=== PATIENT | female | born 1955 | race Caucasian/White ===

== ENCOUNTER 2018-09-24 05:38 | Day surgery (SDC) | payer OTHER ==
--- NOTE | 2018-08-22 06:31 | HP ---
HISTORY AND PHYSICAL: DATE OF SURGERY/ADMISSION: 09/10/18 DATE OF OFFICE VISIT: 08/21/18 SURGEON: Aylin Anders MD * (DICTATED BY ANGELIA REDDY) PROCEDURE: Right knee arthroscopy with partial meniscectomy, possible chondroplasty, possible synovectomy and possible plica excision. CHIEF COMPLAINT: Right knee pain. HISTORY OF PRESENT ILLNESS: Ms. Lynch is a 63-year-old female with complaints of right knee pain. She has elected to proceed with the right knee arthroscopy. PAST MEDICAL HISTORY: Hypertension, high cholesterol and basal cell carcinoma. PAST SURGICAL HISTORY: Breast reduction, hysterectomy, laparoscopy, tubal ligation and tonsillectomy. CURRENT MEDICATIONS: 1. Mobic. 2. Aspirin 81 mg a day. 3. Enalapril/hydrochlorothiazide 5/12.5 mg a day. ALLERGIES: No known drug allergies. FAMILY HISTORY: Coronary artery disease and cancer. SOCIAL HISTORY: She is a 63-year-old female. She lives with her . She does not smoke or use drugs. Uses occasional alcohol. REVIEW OF SYSTEMS: A complete 14-point review of systems was reviewed with the patient, was all negative or noncontributory. PHYSICAL EXAMINATION GENERAL: She is well developed, well nourished, in no acute distress. VITAL SIGNS: She stands 63 inches tall, weighs 180 pounds. Her blood pressure is 120/76 and heart rate is 80. HEENT: Normocephalic, atraumatic. NECK: Supple. No palpable lymph nodes. PULMONARY: The lungs are clear to auscultation bilaterally. CARDIO: Regular rate and rhythm. Strong S1 and S2. ABDOMEN: Soft, nontender and nondistended. NEUROLOGICAL: She is alert and oriented x3. MUSCULOSKELETAL: Right lower extremity: Skin is intact. There are no open wounds or abrasions. She walks with an antalgic-type gait favoring her right knee. There is a gzvc-ou-auvykolm effusion. She has some tenderness over the medial joint line. Positive Cody's, positive Apley's. Negative Ash's. Her calf is soft and nontender. She has 2+ dorsalis pedis pulse. She is able to dorsiflex and plantar flex and has intact sensation. ASSESSMENT AND PLAN: Ms. Lynch is a 63-year-old female with complaints of right knee pain and MRI confirms the meniscus tear. She is elected to proceed with the right knee arthroscopy with partial meniscectomy, possible chondroplasty, possible synovectomy and possible plica excision. Surgery is scheduled for 09/10/[address] Anders discussed the risks and benefits of the surgery at today's visit and all of her questions were answered. She will follow up with Dr. Anders 2 weeks after the surgery. ANGELIA REDDY [id number]/[facility] #: [id number] MTDEmma
[~2018-09-24 05:38] MED LIST: Buffered Lidocaine 1% SYRIN* 1 ML/SYRINGE INTRADERM ONE
[2018-09-24] MEDS ORDERED: Lactated Ringers 1000 ML Bag* 1,000 ML IV SCH (06:00)
[2018-09-24] MEDS ORDERED: Famotidine IV* 10 MG/ML 2 ML (20 mg) IV ONE (06:00)
[2018-09-24] MEDS ORDERED: Buffered Lidocaine 1% SYRIN* 1 ML/SYRINGE INTRADERM ONE (06:14)
[2018-09-24] MEDS ORDERED: ceFAZolin 2 GM PREMIX in ORs 2 GM/50 ML BAG IVPB ONE (06:14)
[2018-09-24] MEDS ORDERED: Famotidine IV* 10 MG/ML 2 ML (20 mg) ONE (06:15)
[2018-09-24] MEDS ORDERED: methylPREDNISolone ACETATE 80* 80 MG/ML 1 ML VIAL ONE (06:49)
[2018-09-24] MEDS ORDERED: ROPIVACAINE 5 MG/ML 30 ML BTL (0.5%) ONE (06:49)
[2018-09-24] MEDS ORDERED: EPINEPHRINE 1 MG/ML 1 ML VIAL ONE (06:49)
[2018-09-24] MEDS ORDERED: Midazolam* 1 MG/ML 5 ML VIAL (5 MG) ONE (07:30)
[2018-09-24] MEDS ORDERED: fentaNYL* 50 MCG/ML 2 ML VIAL (100 MCG VIAL) ONE (07:30)
[2018-09-24] MEDS ORDERED: Ondansetron INJ* 2 MG/ML VIAL ONE (07:55)
[2018-09-24] MEDS ORDERED: DiMENhydriNATE IV* 50 MG/ML VIAL ONE (07:55)
[2018-09-24] MEDS ORDERED: Lidocaine 2% PF * 5 ML VIAL ONE (07:55)
[2018-09-24] MEDS ORDERED: Dexamethasone IV* 4 MG/ML 1 ML (4 MG) ONE (07:55)
[2018-09-24] MEDS ORDERED: Ketorolac INJ* 30 MG/ML 1 ML VIAL ONE (07:55)
[2018-09-24] MEDS ORDERED: Propofol* 10 MG/ML 20 ML BTL ONE (07:55)
[2018-09-24] MEDS ORDERED: Naloxone* 0.4 MG/ML 1 ML VIAL IV PRN (08:35)
[2018-09-24] MEDS ORDERED: Acetaminophen TAB* 325 MG PO PRN (08:35)
[2018-09-24] MEDS ORDERED: DiMENhydriNATE IV* 50 MG/ML VIAL IV PUSH PRN (08:35)
[2018-09-24] MEDS ORDERED: HYDROmorphone INJ1* 1 MG/ML SYRINGE IV PRN (08:35)
[2018-09-24] MEDS ORDERED: oxyCODONE TAB* 5 MG TAB ONE ×2 (08:49→09:41)
[2018-09-24] MEDS: oxyCODONE TAB* 5 MG TAB PO PRN ×2 (08:51→09:47)
[2018-09-24] MEDS ORDERED: Acetaminophen TAB* 325 MG ONE (09:03)
[2018-09-24 09:51] VITALS: BP 134/87
--- NOTE | 2018-09-25 00:24 | OP ---
DATE OF OPERATION: 09/24/18 [facility] DATE OF : 57 ATTENDING SURGEON: Aylin Anders MD. CORPORATE DEVELOPMENT ASSOCIATE: ANGELIA Naqvi. Mr. Tiwari did help throughout the procedure with preparation of the leg, wound retraction, manipulation of the knee, and wound closure. ANESTHESIOLOGIST: Dr. Doan. ANESTHESIA: General. PRE-OP DIAGNOSES: Right knee lateral meniscus tear, moderate degenerative osteoarthritis. POST-OP DIAGNOSES: Right knee lateral meniscus tear, anterior synovitis, severe arthritis. OPERATIVE PROCEDURE: Right knee arthroscopy with partial lateral meniscectomy, anterior synovectomy. COMPLICATIONS: None. ESTIMATED BLOOD LOSS: Less than 25 cc. SPECIMEN: None. BRIEF HISTORY/INDICATIONS: Ms. Lynch is a 63-year-old female who injured her right knee when shoveling snow in April 2018. She had a twisting injury at that time and developed mechanical symptoms along the lateral joint line with recurrent effusions. She failed conservative treatment and MRI confirmed a lateral meniscus tear. We discussed different options and she wished to proceed with arthroscopy. She felt that the mechanical symptoms were causing her the most pain and she understood she had baseline arthritis. Informed consent was obtained from the patient. She understood the risks of surgery included; but were not limited to; bleeding, infection, damage to nearby structures, continued pain, need for further surgery, re-tear of the meniscus, progression of arthritis, stroke, heart attack, blood clot, , and anesthesia complications. She wished to proceed. INTRAOPERATIVE FINDINGS: Intraoperatively, the patient was noted to have a parrot beak type tear along the anterior and midportion of the lateral meniscus. This was displaced into the joint space. She was noted to have a large amount of anterior synovitis and inflamed tissue. She had visible exposed subchondral bone in all 3 compartments. These were grade 3 and 4 Outerbridge cartilage changes. DESCRIPTION OF PROCEDURE: Ms. Lynch was identified in the preanesthesia unit. Her right lower extremity was marked as the correct operative site. Informed consent was signed and placed in the chart. The patient was taken to the operating room and placed under anesthesia without difficulty. Right lower extremity was prepped and draped in the usual sterile fashion. Preop time-out was made to correctly identify the patient, side, and site. Appropriate perioperative antibiotics were given within 1 hour of incision. A 0.5 cm anterolateral portal incision was made along the joint line and it was carried down to the capsule. Trocar was introduced. As soon as the light and water sources were turned on, there was immediate visualization of the suprapatellar pouch. A tour of the knee joint was performed. Suprapatellar pouch had no obvious abnormalities. Patellofemoral compartment had grade 3 and 4 Outerbridge cartilage changes with exposed subchondral bone along the medial and lateral patellar facets. Medial gutter had no obvious plica or loose body. Medial compartment showed no obvious meniscal tear. There was some exposed subchondral bone along the medial femoral condyle with grade 3 and 4 Outerbridge cartilage changes. ACL and PCL appeared to be intact. There was a large amount of anterior inflamed soft tissue or synovitis. The knee was placed in a lgzevd-iq-jcdv position. The lateral compartment showed an obvious meniscal tear along the anterior and midportion of the lateral meniscus with displacement into the joint space. There was exposed subchondral bone along the lateral femoral condyle and lateral tibial plateau. These were grade 3 and 4 Outer-bridge cartilage changes. Lateral gutters showed no loose body or significant plica. Under direct visualization, a medial portal incision was made with a 10 blade. Probe was introduced and a second tour of the knee joint was performed. There were no additional findings noted. Shaver and radiofrequency ablation wand were used to perform anterior synovectomy. Inflamed synovium was conservatively excised. This improved visualization of the joint considerably. The knee was placed in a figure- of-four position. Shaver and straight biter were used to perform partial lateral meniscectomy. Radiofrequency ablation wand was used to further smooth the clean edge of the lateral meniscus. Further probing of the lateral meniscus showed no additional tears. This lateral partial meniscectomy was performed largely in the white-red zone. The knee was copiously irrigated with sterile saline. All instruments were carefully removed. Incisions were closed using 3-0 nylon sutures and an intraarticular injection of 80 mg Depo-Medrol and 6 cc of 0.25% Marcaine was placed in the knee joint. Incisions were covered with sterile Xeroform, 4x4s, and Webril. Henry wrap and cold pack were placed over this. The patient's anesthesia was reversed without difficulty. She was taken to the PACU in stable condition. Intended weightbearing will be weightbearing as tolerated. Intended DVT prophylaxis will be aspirin. [id number]/[facility] #: [id number] MTDD
== END 2018-09-24 09:52 | disposition home or self-care (01) ==
LOC: OR 05:38
PROVIDERS: ATTEND Orthopaedic Surgery Adult Reconstructive Orthopaedic Surgery
DX: S83.281A Other tear of lateral meniscus, current injury, right knee, initial encounter (principal); X58.XXXA Exposure to other specified factors, initial encounter; Y92.9 Unspecified place or not applicable; I10 Essential (primary) hypertension; E78.5 Hyperlipidemia, unspecified; Z85.828 Personal history of other malignant neoplasm of skin; K21.9 Gastro-esophageal reflux disease without esophagitis; M19.90 Unspecified osteoarthritis, unspecified site
CPT/HCPCS: A9270-GY; J0690; J1040; J1100; J1240; J1885; J2250; J2405; J2704; J2795; J3010

== ENCOUNTER 2019-03-13 07:13 | Inpatient (IN) | payer OTHER ==
--- NOTE | 2019-03-05 16:36 | HP ---
HISTORY AND PHYSICAL: DATE OF ADMISSION/SURGERY: 03/13/19 DATE OF OFFICE VISIT: 02/28/19 SURGEON: Aylin Anders MD * (DICTATED BY ANGELIA REDDY) PROCEDURE: Right total knee arthroplasty. CHIEF COMPLAINT: Right knee pain. HISTORY OF PRESENT ILLNESS: Ms. Lynch is a 64-year-old female with end- stage osteoarthritis of the right knee. She has failed conservative treatment and elected to proceed with the right total knee arthroplasty. PAST MEDICAL HISTORY: Hypertension, high cholesterol, basal cell carcinoma. PAST SURGICAL HISTORY: Tonsillectomy, tubal ligation, D and C, hysterectomy, laparoscopic oophorectomy, breast reduction, tooth implant and right knee scope. CURRENT MEDICATIONS: 1. Vitamin D3. 2. Enalapril. 3. Aspirin 81 mg. 4. Centrum Silver. 5. Fish Oil. ALLERGIES: No known drug allergies FAMILY HISTORY: Coronary artery disease, breast cancer and melanoma. SOCIAL HISTORY: She is a 54-year-old, lives with her , does not smoke or use drugs. She has occasional alcohol. REVIEW OF SYSTEMS: A complete 14-point review of systems reviewed with the patient and was all negative or noncontributory. PHYSICAL EXAMINATION GENERAL: She is well developed, well nourished in no acute distress. VITAL SIGNS: She stands 62 inches tall, weighs 190 pounds, blood pressure is 132/90, heart rate is 80. HEENT: Normocephalic, atraumatic. NECK: Supple. No palpable lymph nodes. PULMONARY: Lungs are clear to auscultation bilaterally. CARDIO: Regular rate and rhythm. Strong S1 and S2. ABDOMEN: Soft, nontender, nondistended. NEUROLOGIC: She is alert and oriented x3. MUSCULOSKELETAL: Right lower extremity, skin is intact. There are no open wounds or abrasions. There is a moderate effusion of the right knee joint and tenderness over the medial and lateral joint line. Range of motion is 5 to 125 degrees of flexion with patellofemoral crepitus. She has a 2+ dorsalis pedis pulse. She is able to dorsiflex and plantarflex and has intact sensation. ASSESSMENT AND PLAN: Ms. Lynch is a 64-year-old female with end-stage osteoarthritis of the right knee. She has failed conservative treatment and elected to proceed with a right total knee arthroplasty. The surgery is scheduled for 03/13/[address] Anders discussed the risks and benefits of the surgery at today's visit and all of her questions were answered. She will follow up with Dr. Anders in 2 weeks after the surgery. ANGELIA REDDY [id number]/[facility] #: [id number] NINA
[~2019-03-13 07:13] MED LIST changes: +Lactated Ringers 1000 ML Bag* 1,000 ML IV SCH; +Tranexamic Acid 1,000 MG in NS 0.9% 50 ML* (outpatient use) IV SCH
--- OUTSIDE RECORDS SUMMARY | 2019-03-13 07:17 | XMS REPORT | Continuity of Care Document ---
:1955 External Reference #:[id number] Author Name Wilda Goncalevs M.D. Address [address] [place] [address] Care Team Providers Name Role Phone Wilda Goncalves - Family Medicine Care Team Information Director Of Housing [phone] Problems Description No Information Available Social History Type Date Description Comments Sex Unknown Tobacco Use Start: Unknown End: Former Cigarette Smoker 1 x 10-15 years. Unknown Pack Daily Stopped around 1989. Tobacco Use Start: Unknown End: Patient is a former smoker Unknown Smoking Status Reviewed: 02/18/19 Patient is a former smoker Allergies, Adverse Reactions, Alerts Description No Known Drug Allergies Medications Active Medications SIG Qnty Indications Ordering Provider Date Enalapril take 1 tablet 90tabs I10 ZAIRE Benavidez 06/27/2013 Maleate/Hydrochloroth by mouth every iazide day 5-12.5mg Tablets Asa PO qd Family Medicine 02/22/2006 [facility] Fish Oil 1 PO qd E78.4 Family Medicine 02/22/2006 1000mg [facility] Multi Vit 1 PO qd Unknown Tablets Vitamin D 1 po qd Family [facility] [place] Immunizations CPT Code Status Date Vaccine Lot # [id number] Given 02/18/2019 Influenza Virus Vaccine, Recombinant Dna, [id number] [place] [address] Given 03/28/2018 Influenza Vac, Quadrivalent, Slit Virus, Im [id number] 40550 Given 04/03/2017 Influenza vac quadrivalent preservative free 6 [id number] months and up [address] Given 12/12/2010 Hep A Adlt Immunization [id number] 74847 Given 06/15/2010 Hep A Adlt Immunization [id number] Vital Signs Date Vital Result Comment 02/18/2019 1:01pm BP Systolic 150 mmHg BP Diastolic 88 mmHg Heart Rate 72 /min Body Temperature 98.1 F Respiratory Rate 16 /min Height 62 inches 5'2" Weight 192.00 lb BMI (Body Mass Index) 35.1 kg/m2 08/29/2018 3:06pm BP Systolic 144 mmHg BP Diastolic 80 mmHg Heart Rate 78 /min Body Temperature 97.7 F Height 62 inches 5'2" Weight 182.00 lb BMI (Body Mass Index) 33.3 kg/m2 Results Test Date Facility Test Result H/L Range Note Inr/Protime 08/30/2018 [facility] [place] 0.86 Normal 0.77-1.02 CBC No Diff 08/30/2018 [facility] [place] White Blood Count 7.8 10^3/uL Normal 3.5-10.8 Red Blood Count 4.25 10^6/uL Normal 3.70-4.87 Hemoglobin 13.6 g/dL Normal 12.0-16.0 Hematocrit 40 % Normal 33-41 Mean Corpuscular Volume 95 fL Normal 80-97 Mean Corpuscular Hemoglobin 32 pg High 27-31 Mean Corpuscular HGB Conc 34 g/dL Normal 31-36 Red Cell Distribution Width 13 % Normal 10.5-15 Platelet Count 268 10^3/uL Normal 150-450 Mean Platelet Volume 8.0 fL Normal 7.4-10.4 Comp Metabolic Panel 08/30/2018 [facility] [place] Sodium 138 mmol/L Normal 135-145 Potassium 4.1 mmol/L Normal 3.5-5.0 Chloride 101 mmol/L Normal 101-111 Co2 Carbon Dioxide 30 mmol/L Normal 22-32 Anion Gap 7 mmol/L Normal 2-11 Glucose 73 mg/dL Normal 70-100 Blood Urea Nitrogen 20 mg/dL Normal 6-24 Creatinine 0.76 mg/dL Normal 0.51-0.95 BUN/Creatinine Ratio 26.3 High 8-20 Calcium 9.8 mg/dL Normal 8.6-10.3 Total Protein 7.0 g/dL Normal 6.4-8.9 Albumin 4.6 g/dL Normal 3.2-5.2 Globulin 2.4 g/dL Normal 2-4 Albumin/Globulin Ratio 1.9 Normal 1-3 Total Bilirubin 0.70 mg/dL Normal 0.2-1.0 Alkaline Phosphatase 65 U/L Normal 34-104 Alt 25 U/L Normal 7-52 Ast 19 U/L Normal 13-39 Egfr Non- 77.1 >60 Egfr 93.3 >60 1 Urinalysis Profile 08/30/2018 [facility] [place]rine Color Straw Urine Appearance Clear Urine Specific [place] 1.011 Normal 1.010-1.030 Urine pH 7.0 Normal 5-9 Urine Urobilinogen Negative Negative Urine Ketones Negative Negative Urine Protein Negative Negative Urine Leukocytes Negative Negative Urine Blood Negative Negative Urine Nitrite Negative Negative Urine Bilirubin Negative Negative Urine Glucose Negative Negative Urine Culture And Sensitivities 08/30/2018 [facility] [place] Urine Culture SEE RESULT BELOW 2 1 Because ethnic data is not always readily available, this report includes an eGFR for both -Americans and non- Americans. The National Kidney Disease Education Program (NKDEP) does not endorse the use of the MDRD equation for patients that are not between the ages of 18 and 70, are , have extremes of body size, muscle mass, or nutritional status, or are non- or non-. According to the National Kidney Foundation, irrespective of diagnosis, the stage of the disease is based on the level of kidney function: Stage Description GFR(mL/min/1.73 m(2)) 1 Kidney damage with normal or decreased GFR 90 2 Kidney damage with mild decrease in GFR 60-89 3 Moderate decrease in GFR 30-59 4 Severe decrease in GFR 15-29 5 Kidney failure <15 (or dialysis) 2 SEE RESULT BELOW Name: CYNDIE LYNCH : [address]: Wilda Goncalves MD Acct: [id number] Unit: [id number] AGE: 63 Location: [facility] Re08/30/18 SEX: F Status: REG REF SPEC: [id number] MORENITA: 08/30/[address]: Wilda Goncalves MD REQ: [id number] RECD: 08/30/18 STATUS: EPHRAIM BROWN DR: Aylin Anders MD _ SOURCE: URINE SPDESC: ORDERED: Urine Culture Urine Source: Clean Catch Procedure Result Reported Site Urine Culture Final 09/01/18 9261 ML No growth of clinically significant organisms * ML - Main Lab . END OF REPORT DEPARTMENT OF PATHOLOGY, [address] [place] [id number] Jacob Grant M.D. Director [facility] # [id number] Procedures Date Code Description Status 08/29/2018 25746 Electrocardiogram Complete Completed 03/28/2018 [id number] Mammogram Completed 09/05/2017 [id number] Colonoscopy Completed 03/22/2017 [id number] Mammogram Completed 02/18/2016 [id number] Mammogram Completed 01/07/2015 [id number] Mammogram Completed 10/04/2010 [id number] Mammogram Completed 09/09/2009 [id number] Mammogram Completed 12/06/2007 [id number] Mammogram Completed 08/09/2007 [id number] Colonoscopy Completed Medical Devices Description No Information Available Encounters Type Date Location Provider Dx Diagnosis Office Visit 08/29/2018 [facility] Office Wilda Hayden01.818 Encounter for other 3:00p Paola Goncalves preprocedural examination M25.561 Pain in right knee M25.461 Effusion, right knee M17.11 Unilateral primary osteoarthritis, right knee S83.281A Oth tear of lat mensc, current injury, right knee, init I10 Essential (primary) hypertension Assessments Date Code Description Provider 02/18/2019 Z23 Encounter for immunization Wilda Goncalves M.D. 02/18/2019 Z01.818 Encounter for other preprocedural Wilda Goncalves M.D. examination 02/18/2019 M17.11 Unilateral primary osteoarthritis, right Wilda Goncalves M.D. knee 08/29/2018 Z01.818 Encounter for other preprocedural Wilda Goncalves M.D. examination 08/29/2018 M25.561 Pain in right knee Wilda Goncalves M.D. 08/29/2018 M25.461 Effusion, right knee Wilda Goncalves M.D. 08/29/2018 M17.11 Unilateral primary osteoarthritis, right Wilda Goncalves M.D. knee 08/29/2018 S83.281A Other tear of lateral meniscus, current Wilda Goncalves M.D. injury, right knee, 08/29/2018 I10 Essential (primary) hypertension Wilda Goncalves M.D. Plan of Treatment 02/18/2019 - Wilda Goncalves M.D.Z23 Encounter for immunizationComments:flu shot given today.Z01.818 Encounter for other preprocedural examinationComments: If all labs are normal and Dr. Liao give you cardiac clearance, you are cleared for surgery. stop aspirin, and all supplement 10 days prior to surgery. Please start a stool regimen with the first pain pill so she doesn't get constipated to include not only a stool softener but also miralax and possible a fiber pill.M17.11 Unilateral primary osteoarthritis, right kneeAllComments: Medication Management Patient Understands medications she's taking? Yes No Are there Barriers to Adherence? Yes No Has the patient been asked about herbal supplements and therapies, and OTC meds? Yes No Functional Status Description No Information Available Mental Status Description No Information Available Referrals Refer to Reason for Referral Status Appt Date [facility] abnormal ekg patient is having surgery Sent 09/[address] [address] [phone]
--- OUTSIDE RECORDS SUMMARY | 2019-03-13 07:17 | XMS REPORT | Continuity of Care Document ---
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 Onset: 08/07/2018 Current tear of lateral cartilage AND/OR Aylin Anders M.D. Onset: 08/21/2018 meniscus of knee Social History Type Date Description Comments Sex Unknown ETOH Use Currently consumes 5-10 drinks/week alcohol Tobacco Use Start: Unknown End: Patient is a former Unknown smoker Smoking Status Reviewed: 02/19/19 Patient is a former smoker Exercise Exercises regularly 4 days a week atleast Type/Frequency 30 minutes. Walking, Elliptical, Gardening Allergies, Adverse Reactions, Alerts Description No Known Drug Allergies Medications Active Medications SIG Qnty Indications Ordering Provider Date Vitamin D-3 1 by mouth every Cody Liao DO 09/11/2018 1000Unit day (2000 units) FACC Capsules Enalapril Ishmael Gannon, Maleate/Hydrochlorothi MD azide 5-12.5mg Tablets Aspirin 81 1 by mouth every Unknown 81mg Tablets day DR Rocky Silver 1 by mouth daily Unknown Fish Oil 1 by mouth daily Unknown 1200mg Capsules Hair Skin And Nails daily Unknown Formula History Medications Aspirin Adult take one tab twice 28tabs Aylin Anders, 09/23/2018 - 325mg a day for 2 weeks M.D. 11/07/2018 Tablets Percocet 1 by mouth every 6 16tabs Aylin Anders, 09/23/2018 - 5-325mg hours as needed M.D. 12/08/2018 Tablets pain Medications Administered in Office Medication SIG Qnty Indications Ordering Provider Date Technetium TC 99M Cody Liao DO [facility] 09/18/2018 Tetrofosmin, Per Unit Dose Up To 40 Millicuries Injection Depomedrol 40MG Aylin Anders M.D. 08/07/2018 Injection Immunizations Description No Information Available Vital Signs Date Vital Result Comment 02/19/2019 8:03am Height 62 inches 5'2" Weight 193.00 lb with flip flops Heart Rate 80 /min BP Systolic Sitting 130 mmHg lue reg cuff BP Diastolic Sitting 80 mmHg lue reg cuff BP Systolic Standing 138 mmHg lue reg cuff BP Diastolic Standing 80 mmHg lue reg cuff Respiratory Rate 12 /min BMI (Body Mass Index) 35.3 kg/m2 01/27/2019 12:59pm Height 62 inches 5'2" Weight 180.00 lb Heart Rate 77 /min BP Systolic 122 mmHg BP Diastolic 80 mmHg Body Temperature 98.6 F Pain Level 1 BMI (Body Mass Index) 32.9 kg/m2 Results Test Date Facility Test Result H/L Range Note Inr/Protime 08/30/2018 [facility] Inr 0.86 Normal 0.77-1.[address] [place] [address] [phone] CBC No Diff 08/30/2018 [facility] White Blood 7.8 10^3/uL Normal 3.5-10.[address] [place] [address] [phone] Red Blood Count 4.25 10^6/uL Normal 3.70-4.87 Hemoglobin 13.6 g/dL Normal 12.0-16.0 Hematocrit 40 % Normal 33-41 Mean Corpuscular Volume 95 fL Normal 80-97 Mean Corpuscular Hemoglobin 32 pg High 27-31 Mean Corpuscular HGB Conc 34 g/dL Normal 31-36 Red Cell Distribution Width 13 % Normal 10.5-15 Platelet Count 268 10^3/uL Normal 150-450 Mean Platelet Volume 8.0 fL Normal 7.4-10.4 Comp Metabolic 08/30/2018 [facility] Sodium 138 mmol/L Normal 135-[address] [place] [address] [phone] Potassium 4.1 mmol/L Normal 3.5-5.0 Chloride 101 [...] Egfr 93.3 >60 1 Urinalysis Profile 08/30/2018 [facility] Urine Color Straw [address] [place] [address] [phone] Urine Appearance Clear Urine Specific [place] 1.011 Normal 1.010-1.030 Urine pH 7.0 Normal 5-9 Urine Urobilinogen Negative Negative Urine Ketones Negative Negative Urine Protein Negative Negative Urine Leukocytes Negative Negative Urine Blood Negative Negative Urine Nitrite Negative Negative Urine Bilirubin Negative Negative Urine Glucose Negative Negative Urine Culture And 08/30/2018 [facility] Urine Culture SEE RESULT [address] [place] [address] [phone] 1 Because ethnic data is not always [...] (or dialysis) 2 SEE RESULT BELOW Name: PRAFULCYNDIE Chandu : [address]: Wilda Goncalves MD Acct: [id number] Unit: [id number] AGE: 63 Location: [facility] Re08/30/18 SEX: F Status: REG REF SPEC: [id number] MORENITA: 08/30/18 [facility] DR: Wilda Goncalves MD REQ: [id number] RECD: 08/30/18 STATUS: EPHRAIM BROWN DR: Ayiln Anders MD _ SOURCE: URINE SPDESC: ORDERED: Urine Culture Urine Source: Clean Catch Procedure Result Reported Site Urine Culture Final 09/01/18- 0848 ML No growth of clinically significant organisms * ML - Main Lab . END OF REPORT DEPARTMENT OF PATHOLOGY, [address] [place] [address] Jacob Grant M.D. Director [facility] # [id number] Procedures Date Code Description Status 02/19/2019 17507 EKG Tracing & Interpretation Completed 09/24/2018 88009 Arthroscopy,Knee,Meniscectomy Medial Or Lateral Completed 09/24/2018 62696 Arthroscopy,Knee,Meniscectomy Medial Or Lateral Completed 09/18/2018 43868 Myocardial Perfusion Imaging Tomographic (Spect) Completed Multiple Studies 09/18/2018 05289 Stress Test Completed 09/18/2018 38423 Myocardial Perfusion Imaging Tomographic (Spect) Single Completed Study 09/11/2018 13415 EKG Tracing & Interpretation Completed 09/05/2017 03208455 Colonoscopy Completed Medical Devices Description No Information Available Encounters Type Date Location Provider Dx Diagnosis Office Visit 01/27/2019 [facility] Aylin Anders, M17.11 [facility], [facility] knee M25.561 Pain in right knee M25.461 Effusion, right knee Office Visit 09/11/2018 [place] Cody Saez Z01.810 Encounter for 9:30a Cardiology Of DO Keshawn preprocedural [facility] cardiovascular examination R94.31 Abnormal electrocardiogram [ECG] [EKG] I10 Essential (primary) hypertension Z82.49 Family hx of ischem heart dis and oth dis of the circ sys I25.6 Silent myocardial ischemia R06.02 Shortness of breath E78.5 Hyperlipidemia, unspecified Office Visit 08/21/2018 9:00a [facility] Aylin Anders, M25.561 Pain in right at [place] M.DLucio knee M25.461 Effusion, right knee M17.11 Unilateral primary osteoarthritis, right knee S83.281A Oth tear of lat mensc, current injury, right knee, init Assessments Date Code Description Provider 02/19/2019 Z01.810 Encounter for preprocedural Cody Liao DO [facility] cardiovascular examination 02/19/2019 I10 Essential (primary) hypertension Cody Liao, DO [facility] 02/19/2019 E78.5 Hyperlipidemia, unspecified Cody Liao, DO [facility] 01/29/2019 M17.11 Unilateral primary osteoarthritis, right Aylin Anders M.D. knee 01/29/2019 M25.561 Pain in right knee Aylin Anders M.D. 01/29/2019 M25.461 Effusion, right knee Aylin Anders M.D. 01/29/2019 S83.281D Other tear of lateral meniscus, current Aylin Anders M.D. injury, right knee, subsequent encounter 01/27/2019 M17.11 Unilateral primary osteoarthritis, right Aylin Anders M.D. knee 01/27/2019 M25.561 Pain in right knee Aylin Anders M.D. 01/27/2019 M25.461 Effusion, right knee Aylin Anders M.D. 01/22/2019 M17.11 Unilateral primary osteoarthritis, right Aylin Anders M.D. knee 01/22/2019 M25.561 Pain in right knee Aylin Anders M.D. 01/22/2019 M25.461 Effusion, right knee Aylin Anders M.D. 01/22/2019 S83.281D Other tear of lateral meniscus, current Aylin Anders M.D. injury, right knee, subsequent encounter 12/09/2018 M25.561 Pain in right knee Aylin Anders M.D. 12/09/2018 M25.461 Effusion, right knee Aylin Anders M.D. 12/09/2018 M17.11 Unilateral primary osteoarthritis, right Aylin Anders M.D. knee 12/09/2018 S83.281D Other tear of lateral meniscus, current Aylin Anders M.D. injury, right knee, subsequent encounter 11/08/2018 Z48.89 Encounter for other specified surgical Aylin Anders M.D. aftercare 11/08/2018 S83.281D Other tear of lateral meniscus, current Aylin Anders M.D. injury, right knee, 11/08/2018 M25.561 Pain in right knee Aylin Anders M.D. 11/08/2018 M25.461 Effusion, right knee Aylin Anders M.D. 11/08/2018 M17.11 Unilateral primary osteoarthritis, right Aylin Anders M.D. knee 10/07/2018 S83.281D Other tear of lateral meniscus, current Aylin Anders M.D. injury, right knee, 09/24/2018 S83.281A Other tear of lateral meniscus, current ANGELIA Naqvi injury, right knee, 09/24/2018 S83.281A Other tear of lateral meniscus, current Aylin Anders M.D. injury, right knee, 09/18/2018 Z01.810 Encounter for preprocedural Cody Liao DO [facility] cardiovascular examination 09/18/2018 R06.02 Shortness of breath Cody Liao DO [facility] 09/11/2018 Z01.810 Encounter for preprocedural Cody Liao DO [facility] cardiovascular examination 09/11/2018 R94.31 Abnormal electrocardiogram [ECG] [EKG] Cody Liao DO [facility] 09/11/2018 I10 Essential (primary) hypertension Cody Liao DO [facility] 09/11/2018 Z82.49 Family history of ischemic heart disease Cody Liao DO FACC and other diseases 09/11/2018 I25.6 Silent myocardial ischemia Cody Liao, DO [facility] 09/11/2018 R06.02 Shortness of breath Cody Liao, DO [facility] 09/11/2018 E78.5 Hyperlipidemia, unspecified Cody Liao, DO [facility] 08/21/2018 M25.561 Pain in right knee Aylin Anders M.D. 08/21/2018 M25.461 Effusion, right knee Aylin Anders M.D. 08/21/2018 M17.11 Unilateral primary osteoarthritis, right Aylin Anders M.D. knee 08/21/2018 S83.281A Other tear of lateral meniscus, current Aylin Anders M.D. injury, right knee, Plan of Treatment Future Appointment(s):03/13/2019 7:45 am - Deonte Tiwari PA-C at [facility] at Hesvhl7303/13/2019 7:45 am - ANGELIA Noble at [facility] at Zfyzuv9802/28/2019 9:00 am - Aylin Anders M.D. at [facility] at Ypfhhb6203/13/2019 7:45 am - Aylin Anders M.D. at [facility] at Dbfnbz4402/19/2019 - Cody Liao, DO FACCZ01.810 Encounter for preprocedural cardiovascular examinationFollow up:PRNI10 Essential (primary) jxpwwlnwsifoX80.5 Hyperlipidemia, unspecified Functional Status Description No Information Available Mental Status Description No Information Available Referrals Description No Information Available
--- OUTSIDE RECORDS SUMMARY | 2019-03-13 07:17 | XMS REPORT | Continuity of Care Document ---
:1955 External Reference #:[id number] Author Name Aylin Anders M.D. 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 Onset: 08/07/2018 Current tear of lateral cartilage AND/OR Aylin Anders M.D. Onset: 08/21/2018 meniscus of knee Social History Type Date Description Comments Sex Unknown ETOH Use Currently consumes 5-10 drinks/week alcohol Tobacco Use Start: Unknown End: Patient is a former Unknown smoker Smoking Status Reviewed: 02/28/19 Patient is a former smoker Exercise Exercises [...] every Unknown 81mg Tablets day DR Rocky Todd 1 by mouth daily Unknown Fish Oil 1 by mouth daily Unknown 1200mg Capsules History Medications Aspirin Adult take one tab twice 28tabs Aylin Anders, 09/23/2018 - 325mg a day for 2 weeks M.D. 11/07/2018 Tablets Percocet 1 by mouth every 6 16tabs Aylin Anders, 09/23/2018 - 5-325mg hours as needed M.DLucio 12/08/2018 Tablets pain Medications Administered in Office Medication SIG Qnty Indications Ordering Provider Date Technetium TC 99M Cody Liao DO [facility] 09/18/2018 Tetrofosmin, Per Unit Dose Up To 40 Millicuries Injection Depomedrol 40MG Aylin Anders M.D. 08/07/2018 Injection Immunizations Description No Information Available Vital Signs Date Vital Result Comment 02/28/2019 9:10am Height 62 inches 5'2" Weight 190.00 lb Heart Rate 80 /min BP Systolic 132 mmHg BP Diastolic 90 mmHg Respiratory Rate 12 /min Body Temperature 97.1 F Pain Level 1 BMI (Body Mass Index) 34.7 kg/m2 02/19/2019 8:03am Height 62 inches 5'2" Weight 193.00 lb with flip flops Heart Rate 80 /min BP Systolic Sitting 130 mmHg lue reg cuff BP Diastolic Sitting 80 mmHg lue reg cuff BP Systolic Standing 138 mmHg lue reg cuff BP Diastolic Standing 80 mmHg lue reg cuff Respiratory Rate 12 /min BMI (Body Mass Index) 35.3 kg/m2 Results Test Date Facility Test Result H/L Range Note Inr/Protime 08/30/2018 [facility] Inr 0.86 Normal 0.77-1.02 [address] [place] [address] [phone] CBC No Diff 08/30/2018 [facility] White Blood 7.8 10^3/uL Normal 3.5-10.8 [address] [facility] [place] [address] [phone] Red Blood Count 4.25 10^6/uL Normal 3.70-4.87 Hemoglobin 13.6 g/dL Normal 12.0-16.0 Hematocrit 40 % Normal 33-41 Mean Corpuscular Volume 95 fL Normal 80-97 Mean Corpuscular Hemoglobin 32 pg High 27-31 Mean Corpuscular HGB Conc 34 g/dL Normal 31-36 Red Cell Distribution Width 13 % Normal 10.5-15 Platelet Count 268 10^3/uL Normal 150-450 Mean Platelet Volume 8.0 fL Normal 7.4-10.4 Comp Metabolic 08/30/2018 [facility] Sodium 138 mmol/L Normal 135-[address] [place] [address] [phone] Potassium 4.1 mmol/L Normal 3.5-5.0 Chloride 101 [...] Egfr 93.3 >60 1 Urinalysis Profile 08/30/2018 [facility] Urine Color Straw [address] [place] [address] [phone] Urine Appearance Clear Urine Specific [place] 1.011 Normal 1.010-1.030 Urine pH 7.0 Normal 5-9 Urine Urobilinogen Negative Negative Urine Ketones Negative Negative Urine Protein Negative Negative Urine Leukocytes Negative Negative Urine Blood Negative Negative Urine Nitrite Negative Negative Urine Bilirubin Negative Negative Urine Glucose Negative Negative Urine Culture And 08/30/2018 [facility] Urine Culture SEE RESULT [address] [place] [address] [phone] 1 Because ethnic data is not always [...] [address]: Wilda Goncalves MD Acct: [id number] Unit: [id number] AGE: 63 Location: [facility] Re08/30/18 SEX: F Status: REG REF SPEC: [id number] MORENITA: 08/30/18 [facility] DR: Wilda Goncalves MD REQ: [id number] RECD: 08/30/18 STATUS: EPHRAIM BROWN DR: Aylin Anders MD _ SOURCE: URINE SPDESC: ORDERED: Urine Culture Urine Source: Clean Catch Procedure Result Reported Site Urine Culture Final 09/01/18- 0848 ML No growth of clinically significant organisms * ML - Main Lab . END OF REPORT DEPARTMENT OF PATHOLOGY, [address] [place] [address] Jacob Grant M.D. Director [facility] # [id number] Procedures Date Code Description Status 02/19/2019 21088 EKG Tracing & Interpretation Completed 09/24/2018 27427 Arthroscopy,Knee,Meniscectomy Medial Or Lateral Completed 09/24/2018 92723 Arthroscopy,Knee,Meniscectomy Medial Or Lateral Completed 09/18/2018 43534 Myocardial Perfusion Imaging Tomographic (Spect) Completed Multiple Studies 09/18/2018 60036 Stress Test Completed 09/18/2018 74312 Myocardial Perfusion Imaging Tomographic (Spect) Single Completed Study 09/11/2018 17582 EKG Tracing & Interpretation Completed 09/05/2017 47594003 Colonoscopy Completed Medical Devices Description No Information Available Encounters Type Date Location Provider Dx Diagnosis Office Visit 02/19/2019 [facility] Cody Saez Z01.810 Encounter for 8:15a Of Dk Liao DO FACC preprocedural cardiovascular examination I10 Essential (primary) hypertension E78.5 Hyperlipidemia, unspecified Office Visit 01/27/2019 [place] Aylin M17.11 Unilateral primary 1:00p [facility] [place] Anders osteoarthritis, right [place] knee M25.561 Pain in right knee M25.461 Effusion, right knee Office Visit 09/11/2018 [place] Cody Saez Z01.810 Encounter for 9:30a Cardiology Of DO Keshawn preprocedural [facility] cardiovascular examination R94.31 Abnormal electrocardiogram [ECG] [EKG] I10 Essential (primary) hypertension Z82.49 Family hx of ischem heart dis and oth dis of the circ sys I25.6 Silent myocardial ischemia R06.02 Shortness of breath E78.5 Hyperlipidemia, unspecified Assessments Date Code Description Provider 02/28/2019 M17.11 Unilateral primary osteoarthritis, right Aylin Anders M.D. knee 02/28/2019 M25.561 Pain in right knee Aylin Anders M.D. 02/19/2019 Z01.810 Encounter for preprocedural Cody Liao DO [facility] cardiovascular examination 02/19/2019 I10 Essential (primary) hypertension Cody Liao DO [facility] 02/19/2019 E78.5 Hyperlipidemia, unspecified Cody Liao DO [facility] 01/29/2019 M17.11 Unilateral primary osteoarthritis, right [...] Z01.810 Encounter for preprocedural Cody Liao DO [facility] cardiovascular examination 09/18/2018 R06.02 Shortness of breath Cody Liao DO [facility] 09/11/2018 Z01.810 Encounter for preprocedural Cody Liao DO [facility] cardiovascular examination 09/11/2018 R94.31 Abnormal electrocardiogram [ECG] [EKG] Cody Liao DO [facility] 09/11/2018 I10 Essential (primary) hypertension Cody Liao DO [facility] 09/11/2018 Z82.49 Family history of ischemic heart disease Cody Liao DO [facility] and other diseases 09/11/2018 I25.6 Silent myocardial ischemia Cody Liao, DO [facility] 09/11/2018 R06.02 Shortness of breath Cody Liao, DO [facility] 09/11/2018 E78.5 Hyperlipidemia, unspecified Cody Liao, DO [facility] Plan of Treatment Future Appointment(s):03/28/2019 1:15 pm - Aylin Anders M.D. at [facility] at Nuxwwn3903/13/2019 7:45 am - Deonte Tiwari PA-C at [facility] at Umskxu0003/13/2019 7:45 am - ANGELIA Noble at [facility] at Dsicwb9203/13/2019 7:45 am - Aylin Anders M.D. at [facility] at Mykygb5102/28/2019 - Aylin Anders M.D.M17.11 Unilateral primary osteoarthritis, right kneeFollow up:Follow up: 2 weeks after govbqweZ48.561 Pain in right knee Functional Status Description No Information Available Mental Status Description No Information Available Referrals Description No Information Available
--- OUTSIDE RECORDS SUMMARY | 2019-03-13 07:17 | XMS REPORT | Continuity of Care Document ---
:1955 External Reference #:[id number] Author Name Aylin Anders M.D. (transmitted by agent of provider Mary Rodriguez) Address [address] [facility] [place] [address] Care Team Providers Name Role Phone Jessica Hernandez, NATIONAL INVESTIGATIVE PRODUCER - Nurse Care Team Information Marine Electrician Apprentice [phone] Practitioner Problems Active Problems Provider Date Localized, primary osteoarthritis Aylin Anders M.D. Onset: 08/07/2018 Current tear of lateral cartilage AND/OR Aylin Anders M.D. Onset: 08/21/2018 meniscus of knee Social History Type Date Description Comments Sex Unknown ETOH Use Currently consumes 5-10 drinks/week alcohol Tobacco Use Start: Unknown End: Patient is a former Unknown smoker Smoking Status Reviewed: 01/27/19 Patient is a former smoker Exercise Exercises regularly 4 days a week atleast Type/Frequency 30 minutes. Walking, Elliptical, Gardening Allergies, Adverse Reactions, Alerts Description No Known Drug Allergies Medications Active Medications SIG Qnty Indications Ordering Provider Date Vitamin D-3 2 by mouth every Cody Liao DO 09/11/2018 1000Unit day (2000 units) [facility]ACC Capsules Enalapril Jessica Hernandez Maleate/Hydrochlorothi azide 5-12.5mg Tablets Aspirin 81 1 by mouth every Unknown 81mg Tablets day DR Rocky Silver 1 by mouth daily Unknown Fibercon 1 by mouth every Unknown 625mg Tablets day Fish Oil 1 by mouth daily Unknown 1200mg Capsules Hair Skin And Nails daily Unknown Formula History Medications Aspirin Adult take one tab 28tabs Aylin Anders 09/23/2018 - 325mg twice a day for M.D. 11/07/2018 Tablets 2 weeks Percocet 1 by mouth every 16tabs Aylin Anders, 09/23/2018 - 5-325mg 6 hours as M.D. 12/08/2018 Tablets needed pain Meloxicam 1 by mouth every 14tabs M25.561 Aylin Anders, 08/07/2018 - 15mg day M.D. 09/10/2018 Tablets Medications Administered in Office Medication SIG Qnty Indications Ordering Provider Date Technetium TC 99M Cody Liao DO [facility] 09/18/2018 Tetrofosmin, Per Unit Dose Up To 40 Millicuries Injection Depomedrol 40MG Aylin Anders M.D. 08/07/2018 Injection Immunizations Description No Information Available Vital Signs Date Vital Result Comment 01/27/2019 12:59pm Height 62 inches 5'2" Weight 180.00 lb Heart Rate 77 /min BP Systolic 122 mmHg BP Diastolic 80 mmHg Body Temperature 98.6 F Pain Level 1 BMI (Body Mass Index) 32.9 kg/m2 12/09/2018 10:18am Height 62 inches 5'2" Weight 180.00 lb BP Systolic 132 mmHg BP Diastolic 86 mmHg Body Temperature 97.2 F BMI (Body Mass Index) 32.9 kg/m2 Results Test Date Facility Test Result H/L Range Note Inr/Protime 08/30/2018 [facility] Inr 0.86 Normal 0.77-1.[address] [place] [address] [phone] CBC No Diff 08/30/2018 [facility] White Blood 7.8 10^3/uL Normal 3.5-10.[address] [place] [address] [phone] Red Blood Count 4.25 10^6/uL Normal 3.70-4.87 Hemoglobin 13.6 g/dL Normal 12.0-16.0 Hematocrit 40 % Normal 33-41 Mean Corpuscular Volume 95 fL Normal 80-97 Mean Corpuscular Hemoglobin 32 pg High 27-31 Mean Corpuscular HGB Conc 34 g/dL Normal 31-36 Red Cell Distribution Width 13 % Normal 10.5-15 Platelet Count 268 10^3/uL Normal 150-450 Mean Platelet Volume 8.0 fL Normal 7.4-10.4 Comp Metabolic 08/30/2018 [facility] Sodium 138 mmol/L Normal 135-145 [address] [place] [address] [phone] Potassium 4.1 mmol/L Normal 3.5-5.0 Chloride 101 [...] Egfr 93.3 >60 1 Urinalysis Profile 08/30/2018 [facility] Urine Color Straw [address] [place] [address] [phone] Urine Appearance Clear Urine Specific [place] 1.011 Normal 1.010-1.030 Urine pH 7.0 Normal 5-9 Urine Urobilinogen Negative Negative Urine Ketones Negative Negative Urine Protein Negative Negative Urine Leukocytes Negative Negative Urine Blood Negative Negative Urine Nitrite Negative Negative Urine Bilirubin Negative Negative Urine Glucose Negative Negative Urine Culture And 08/30/2018 [facility] Urine Culture SEE RESULT [address] [place] [address] [phone] 1 Because ethnic data is not always [...] [address]: Wilda Goncalves MD Acct: [id number] Unit: [id number] AGE: 63 Location: [facility] Re08/30/18 SEX: F Status: REG REF SPEC: [id number] MORENITA: 08/30/18 [facility] [address]: Wilda Goncalves MD REQ: [id number] RECD: 08/30/18 STATUS: COMP [facility] DR: Aylin Anders MD _ SOURCE: URINE SPDESC: ORDERED: Urine Culture Urine Source: Clean Catch Procedure Result Reported Site Urine Culture Final 09/01/18- 0848 ML No growth of clinically significant organisms * ML - Main Lab . END OF REPORT DEPARTMENT OF PATHOLOGY, [address] [place] [address] Jacob Grant M.D. Director [facility] # [id number] Procedures Date Code Description Status 09/24/2018 90506 Arthroscopy,Knee,Meniscectomy Medial Or Lateral Completed 09/24/2018 14707 Arthroscopy,Knee,Meniscectomy Medial Or Lateral Completed 09/18/2018 34936 Stress Test Completed 09/18/2018 97397 Myocardial Perfusion Imaging Tomographic (Spect) Single Completed Study 09/11/2018 06826 EKG Tracing & Interpretation Completed 08/07/2018 47506 Inject/Drain Joint/Bursa Major W/O US Completed 09/05/2017 11201899 Colonoscopy Completed Medical Devices Description No Information Available Encounters Type Date Location Provider Dx Diagnosis Office Visit 09/11/2018 [facility] Cody Saez Z01.810 Encounter for 9:30a Of Dk Liao DO FACC preprocedural cardiovascular examination R94.31 Abnormal electrocardiogram [ECG] [EKG] I10 Essential (primary) hypertension Z82.49 Family hx of ischem heart dis and oth dis of the circ sys I25.6 Silent myocardial ischemia R06.02 Shortness of breath E78.5 Hyperlipidemia, unspecified Office Visit 08/21/2018 [facility] Aylin Anders, M25.561 Pain in right Of C.M.A. M.D. knee M25.461 Effusion, right knee M17.11 Unilateral primary osteoarthritis, right knee S83.281A Oth tear of lat mensc, current injury, right knee, init Office Visit 08/07/2018 10:[facility] Aylin Anders, M25.561 Pain in right Of C.M.A. M.D. knee M25.461 Effusion, right knee M17.11 Unilateral primary osteoarthritis, right knee Assessments Date Code Description Provider 01/27/2019 M17.11 Unilateral primary osteoarthritis, right Aylin Anders M.D. knee 01/27/2019 M25.561 Pain in right knee Aylin Anders M.D. 12/09/2018 M25.561 Pain in right knee Aylin [...] knee, 09/18/2018 Z01.810 Encounter for preprocedural Cody Liao, [facility] cardiovascular examination 09/18/2018 R06.02 Shortness of breath Cody Liao, [facility] 09/11/2018 Z01.810 Encounter for preprocedural Cody Liao, [facility] cardiovascular examination 09/11/2018 R94.31 Abnormal electrocardiogram [ECG] [EKG] Cody Liao, [facility] 09/11/2018 I10 Essential (primary) hypertension Codypascual Liao, [facility] 09/11/2018 Z82.49 Family history of ischemic heart disease Cody SLucio Liao, DO [facility] and other diseases 09/11/2018 I25.6 Silent myocardial ischemia Cody SLucio Liao, [facility] 09/11/2018 R06.02 Shortness of breath Cody SLucio Liao, [facility] 09/11/2018 E78.5 Hyperlipidemia, unspecified Cody TiffanyLucio Keshawn, [facility] 08/21/2018 M25.561 Pain in right knee Aylin Anders M.D. 08/21/2018 M25.461 Effusion, right knee Aylin Anders M.D. 08/21/2018 M17.11 Unilateral primary osteoarthritis, right Aylin Anders M.D. knee 08/21/2018 S83.281A Other tear of lateral meniscus, current Aylin Anders M.D. injury, right knee, 08/07/2018 M25.561 Pain in right knee Aylin Anders M.D. 08/07/2018 M25.461 Effusion, right knee Aylin Anders M.D. 08/07/2018 M17.11 Unilateral primary osteoarthritis, right Aylin Anders M.D. knee Plan of Treatment 01/27/2019 - Aylin Anders M.D.M17.11 Unilateral primary osteoarthritis, right kneeFollow up:Follow up: As [id number] Pain in right knee Functional Status Description No Information Available Mental Status Description No Information Available Referrals Description No Information Available
[2019-03-13] MEDS ORDERED: ceFAZolin 2 GM PREMIX in ORs 2 GM/50 ML BAG ONE (07:38)
[2019-03-13] MEDS ORDERED: Dexmedetomidine* 200 MCG/2 ML 2 ML VIAL ONE (08:02)
[2019-03-13] MEDS ORDERED: ROPIVACAINE 5 MG/ML 30 ML BTL (0.5%) ONE ×2 (08:02→08:54)
[2019-03-13] MEDS ORDERED: Midazolam* 1 MG/ML 2 ML VIAL (2 MG) ONE (08:02)
[2019-03-13] MEDS ORDERED: Lidocaine 2% PF * 5 ML VIAL ONE (08:02)
[2019-03-13] MEDS ORDERED: fentaNYL* 50 MCG/ML 2 ML VIAL (100 MCG VIAL) ONE (08:03)
[2019-03-13] MEDS ORDERED: Propofol* 500 MG/50 ML BTL ONE ×2 (08:49→10:38)
[2019-03-13] MEDS ORDERED: Remifentanil* 2 MG VIAL ONE (08:49)
[2019-03-13] MEDS ORDERED: KETAMINE HCL* 50 MG/ML 10 ML VIAL ONE (08:49)
[2019-03-13] MEDS ORDERED: Rocuronium* 10 MG/ML VIAL ONE (09:45)
[2019-03-13] MEDS ORDERED: Naloxone* 0.4 MG/ML 1 ML VIAL IV PRN (10:03)
[2019-03-13] MEDS ORDERED: DiMENhydriNATE IV* 50 MG/ML VIAL IV PUSH PRN (10:03)
[2019-03-13] MEDS ORDERED: EPHEDrine (Pressors)* 50 MG/ML VIAL ONE (10:22)
[2019-03-13] MEDS ORDERED: Metoclopramide IV* 5 MG/ML 2 ML VIAL ONE (10:35)
[2019-03-13] MEDS ORDERED: Ketorolac INJ* 30 MG/ML 1 ML VIAL ONE (10:35)
[2019-03-13] MEDS ORDERED: Dexamethasone IV* 4 MG/ML 1 ML (4 MG) ONE (10:35)
[2019-03-13] MEDS ORDERED: Ondansetron INJ* 2 MG/ML VIAL ONE (10:35)
[2019-03-13] MEDS ORDERED: Propofol* 10 MG/ML 20 ML BTL ONE (10:38)
[2019-03-13] MEDS ORDERED: HYDROmorphone INJ1* 1 MG/ML SYRINGE ONE ×2 (11:45→12:17)
[2019-03-13] MEDS ORDERED: Sugammadex * 200 MG/2 ML VIAL IV PUSH ONE (11:48)
[2019-03-13] MEDS ORDERED: Ondansetron INJ* 2 MG/ML VIAL IV PRN (12:14)
[2019-03-13] MEDS ORDERED: Cyclobenzaprine TAB* 10 MG PO PRN (12:14)
[2019-03-13] MEDS ORDERED: oxyCODONE TAB* 5 MG TAB PO PRN (12:14)
[2019-03-13] MEDS ORDERED: traMADol TAB* 50 MG PO PRN (12:14)
[2019-03-13] MEDS ORDERED: diPHENhydraMINE IV* 50 MG/ML 1 ml VIAL (BENADRYL) IV PRN (12:14)
[2019-03-13] MEDS ORDERED: Polyethylene Glycol 3350* 17 GM PACKET PO PRN (12:14)
[2019-03-13] MEDS ORDERED: Ondansetron TAB* 4 MG PO PRN (12:14)
[2019-03-13] MEDS ORDERED: Magnesium Hydroxide LIQ* 30 ML UDC PO PRN (12:14)
[2019-03-13] MEDS ORDERED: Morphine INJ* 2 MG/ML 1 ML SYRINGE (TWO MG - NEW SYRINGE VERSION) IV PRN (12:14)
[2019-03-13] MEDS ORDERED: diPHENhydraMINE PO* 25 MG PO PRN (12:14)
[2019-03-13] MEDS ORDERED: Ondansetron ODT TAB* 4 MG PO PRN (12:14)
[2019-03-13] MEDS ORDERED: oxyCODONE TAB* 5 MG TAB ONE (12:17)
[2019-03-13] MEDS ORDERED: Acetaminophen IV 1GM/100ML * 100 ML ONE (12:17)
[2019-03-13] MEDS: HYDROmorphone INJ1* 1 MG/ML SYRINGE IV PRN ×4 (12:18→12:33)
[2019-03-13] MEDS: oxyCODONE TAB* 5 MG TAB PO PRN ×2 (12:19→12:38)
[2019-03-13] MEDS: Lactated Ringers 1000 ML Bag* 1,000 ML IV SCH ×2 (13:23→23:17)
[2019-03-13] MEDS: Acetaminophen TAB* 325 MG PO SCH ×2 (13:52→22:04)
[2019-03-13] MEDS: oxyCODONE/Acetamin 5/325 MG* TAB PO PRN ×2 (15:33→19:59)
[2019-03-13] MEDS: ceFAZolin 1 GM ADVAN(*) 1 GM in NS 0.9% 50 ML* 50 ML IVPB SCH ×2 (15:34→23:23)
--- NOTE | 2019-03-13 16:30 | PN ---
Progress Note - Progress Note Date of Service: 03/13/19 Note: OOB to chair, pain well controlled, no complaints; able to dorsi flex/plantar flex, 2+ DP pulse,intact sensation; dressing c/d/i
--- NOTE | 2019-03-13 17:59 | OP ---
Operative Report - Blank - Operative Report Date of Operation: 03/13/19 Note: ROSENDA BASILIO 1955 Date of Surgery: 03/13/19 Aylin Anders MD Physical Chemistry Teacher: Nadja GALAN did help throughout the procedure with preparation of the knee, wound retraction, manipulation of the knee, and wound closure. Anesthesiologist: Amanda Angulo MD Anesthesia Type: General Preoperative Diagnosis: Right severe degenerative osteoarthritis of the knee Postoperative Diagnosis: As above Procedure Performed: Right Total Knee Arthroplasty Tourniquet time: 44 minutes Complications: None Specimen: Bone and cartilage from the right knee joint sent to pathology. Hardware Used: Cemented Morales and Nephew total knee hardware was used - For the femur a size 5 right narrow oxinium legion posterior stabilized femoral component, for the tibia a size 3 right aura II tibial baseplate, for the insert a size 11mm 3-4 posterior stabilized articular polyethylene insert, and for the patella a size 32 3-peg all poly patella. Brief History/Indication: ROSENDA BASILIO was known in clinic and had a history of severe right knee pain and swelling. She failed conservative treatment with anti-inflammatories, pain pills, intra-articular injections and physical therapy. She elected to undergo right total knee arthroplasty due to continued pain and decreased quality of life. Radiographs showed severe end stage osteoarthritis of the knee with bone on bone contact. Informed consent was obtained from the patient. She understood the risks of surgery included but were not limited to: bleeding, infection, damage to nearby structures, intraoperative fracture, nerve palsy, failure of the hardware, early loosening, knee stiffness or loss of motion, anesthesia complications, stroke, heart attack , blood clot and . She wished to proceed. Intra-Operative Findings: Intraoperatively the patient was noted to have severe loss of cartilage in all 3 compartments of the knee. Description of the Procedure: ROSENDA BASILIO was identified in the preanesthesia unit. Her right knee was marked as the correct operative side. Informed consent was signed and placed in the chart. The patient was taken to the operating room and placed under anesthesia without complication. A salgado catheter was placed. A tourniquet was placed on the right thigh. The right lower extremity was prepped and draped in the usual sterile fashion. Preoperative time-out was made to correctly identify the patient, side and site. Appropriate intraoperative antibiotics were given within one hour of incision. Tourniquet was inflated. A midline incision was made and carried sharply down to the extensor mechanism. A new 10 blade was used to make a standard medial parapatellar arthrotomy. The patella was subluxed laterally. Electrocautery was used to dissect soft tissue off the superomedial tibia to the midsagittal plane. The knee was flexed up. The anterior horn of the lateral meniscus and the ACL were sharply incised. A drill was used to enter the distal femur. The intramedullary distal femoral cutting guide was pinned on the distal femur. The oscillating saw was used to make the distal femoral cut. The external rotation guide was pinned on the distal femur and the distal femur was sized to a size 5. The size 5 multi-cutting jig was pinned on the distal femur. The oscillating saw was used to make the appropriate 4 chamfer cuts. Next the PCL was completely released. The extramedullary tibial cutting guide was pinned on the proximal tibia and the oscillating saw was used to make the proximal tibial cut perpendicular to the mechanical axis of the tibia. The bone was carefully removed. The knee was brought out into full extension. The spacer block was placed and had excellent fit with the knee in full extension. The medial and lateral ligaments were well balanced. The flexion and extension gaps were well balanced. The knee was flexed up. Lamina labor commissioner was placed both medially and laterally. Any remaining meniscus was removed with electrocautery. Curved osteotome was used to remove any posterior osteophytes. The tibial tray and drop bishop were placed and confirmed a satisfactory tibial cut. The size 5 right narrow femoral trial was impacted onto the distal femur. This trial had excellent fit and stability. The box for the posterior stabilized implant was prepared using a box cut osteotome and a reamer. Next a tibial tray trial and 9 mm insert trial was placed. The knee was taken through a range of motion and had full extension to 130 degrees of flexion. Patellofemoral tracking was satisfactory. The patella was inverted and sized to a size 32. Three peg holes were drilled through the size 32 drill guide. The trial patella was placed and the knee was taken through a range of motion. There was satisfactory patellofemoral tracking. All trials were removed. The tibia was subluxed anteriorly and sized to a size 3. The proximal tibial was prepared with a size 3 keel punch. All bony cut surfaces were irrigated with sterile saline and dried. Final implants were cemented into place starting with the tibia, followed by the femur, and last the patella. A 9 mm insert trial was placed and the knee was brought into full extension. Tourniquet was turned down and the knee was copiously irrigated with sterile saline. Electrocautery was used to obtain meticulous hemostasis. Once the cement had fully cured, the insert trial was removed. Any excess cement was removed from around the hardware and capsule. Final insert chosen was a 11 mm posterior stabilized Aura II articular insert size 3-4. Stability of the insert was checked and noted to be stable. The extensor mechanism was closed using number 1 vicryls. The rest of the incision was closed in a layered fashion using 0 and 2-0 vicryls. The skin was closed using 3-0 nylon suture. Sterile xeroform, 4x4s and webril were used to cover the incision. Henry wrap and cold pack were used to cover the dressings. The patients anesthesia was reversed without difficulty. She was taken to the PACU in stable condition. Intended weight-bearing will be as tolerated.
--- NOTE | 2019-03-13 20:05 | CONS ---
HOSPITAL MEDICINE CONSULTATION REPORT: DATE OF CONSULT: 03/13/19 PROVIDER: Lacey Mcdonald NP. ATTENDING PHYSICIAN: Dr. Anders.* CONSULTING PHYSICIAN: Shady Ridley M.D. (dictated by Lacey Mcdonald NP). REASON FOR CONSULT: Co-management of chronic medical conditions. HISTORY OF PRESENT ILLNESS: Ms. Lynch is a 64-year-old female with past medical history significant for hypertension, hyperlipidemia, and history of basal cell carcinoma who presented to [facility] for an elective right total knee arthroplasty with Dr. Anders. Please see dictated H and P from Sil John for complete details. In brief, the patient had ongoing pain and failed conservative measures; therefore, opted to have a right total knee arthroplasty with Dr. Anders. In the immediate postoperative period, the patient has no complaints. She denies any recent fever, chills, chest pain, or shortness of breath. Denies any nausea, vomiting, diarrhea, abdominal pain, hematuria, dysuria, urinary frequency, or urgency. She denies any weakness on one side. Due to her history of hypertension and hyperlipidemia, hospital medicine was asked to see and evaluate and help to co-manage her during her hospitalization. PAST MEDICAL HISTORY: Significant for: 1. Hypertension. 2. Hyperlipidemia. 3. Basal cell carcinoma. PAST SURGICAL HISTORY: 1. Tonsillectomy. 2. D and C. 3. Tubal ligation. 4. Hysterectomy. 5. Breast reduction. 6. Laparotomy for right tubal and ovary removal. 7. Arthroscopy of the right knee. 8. Tooth implant. HOME MEDICATIONS: Include: 1. Accupril/hydrochlorothiazide 5/12.5. 2. Aspirin 81 mg p.o. daily. 3. Multivitamin 1 tab p.o. daily. 4. Fish oil 1 tab p.o. daily. 5. Vitamin D p.o. daily. ALLERGIES: No known drug allergies. FAMILY HISTORY: Mother with hyperlipidemia. Mother with an [place] in her 50s. No reported history of diabetes. Mother with breast cancer. Daughter with melanoma. Sister with thyroid cancer with mets to the bone. SOCIAL HISTORY: The patient reports she quit smoking 35 years ago. Prior to that, she smoked for 10 years approximately a pack a day. She does report drinking 2 drinks 5 days a week. Denies any illicit drug use. Surrogate decision maker in the event she is unable to make her own decisions is Venkat. She is a full code. REVIEW OF SYSTEMS: An 11-point review of systems was completed. All pertinent positives are mentioned in the HPI. PHYSICAL EXAMINATION: General: At this time, Ms. Lynch is a 64-year-old female. She is resting comfortably in her hospital bed in her room. She is in no acute distress. Vital Signs: Blood pressure 113/56, heart rate 67, respirations 16, O2 saturation 98%, temperature was 97.3. HEENT: Head is atraumatic and normocephalic. Eyes: EOMs are intact. Sclerae anicteric and not pale. Oral mucosa appeared to be moist. Neck is supple. Lungs are clear to auscultation bilaterally. No wheezes, rales, or rhonchi. Cardiac: S1, S2. Regular rate and rhythm. No murmurs, rubs, or gallops. Abdomen is soft and nontender. Bowel sounds are present x4. Extremities: She is able to move all 4 extremities. There is no clubbing or cyanosis. She does have a dressing that is dry and intact to her right knee. Neurologic: She is awake, alert, and oriented x3. Speech is clear. Thought process is intact. There are no gross focal deficits. Skin: She does have a dressing that is dry and intact to her right knee. LABORATORY DATA AND DIAGNOSTIC STUDIES: CBC from 02/28/19: WBCs are 5.5, RBCs 4.46, hemoglobin 14.4, hematocrit was 41, platelet count was 271. INR was 0.97 , aPTT was 42.6. Sodium 139, potassium 4.0, chloride 101, carbon dioxide was 30 , anion gap was 8, BUN was 16, creatinine 0.73, calcium was 10.4. ASTs were 24 , ALTs were 44, alkaline phosphatase was 69. Urine was within normal limits. IMPRESSION AND PLAN: Ms. Lynch is a 64-year-old female with past medical history significant for hypertension, hyperlipidemia, and history of basal cell carcinoma who presented to [facility] for an elective right total knee arthroplasty with Dr. Anders. In the immediate postoperative period, the patient has no complaints. Our recommendations are as follows: 1. Status post right total knee arthroplasty. Management per orthopedics. PT/ OT per orthopedics. Bowel regimen per orthopedics. Pain management per orthopedics. 2. Hypertension. I would hold her hydrochlorothiazide and continue her enalapril 5 mg with holding parameters for systolic blood pressure less than 110. 3. FEN. She can have a regular diet. 4. Code status. She is a full code. 5. DVT prophylaxis. As per orthopedics, she will be placed on Eliquis. TIME SPENT: Time spent on this consultation was 45 minutes, greater than half that time was spent at the bedside reviewing the events leading thus far to her hospitalization, performing physical exam, and reviewing my plan of care. I have discussed this with my attending, Dr. Shady Ridley; he is in agreement with my plan. LACEY MCDONALD, SURAJ [id number]/CPS #: [id number] MTDD
[2019-03-13] MEDS: Docusate CAP* 100 MG PO SCH (21:20)
[2019-03-13] MEDS: Magnesium Hydroxide LIQ* 30 ML UDC PO SCH (21:20)
[2019-03-14] MEDS: oxyCODONE/Acetamin 5/325 MG* TAB PO PRN ×4 (01:49→15:30)
[2019-03-14 05:33] LABS: Hematocrit 32 % (35-47); Hemoglobin 11.2 g/dL (12.0-16.0); Mean Platelet Volume 7.2 fL (7.4-10.4); Platelet Count 270 10^3/uL (150-450)
[2019-03-14 05:54] LABS: BUN/Creatinine Ratio 18.8 (8-20); Calcium 8.9 mg/dL (8.6-10.3); EGFR Non-African American 85.9 (>60); Potassium 4.3 mmol/L (3.5-5.0)
[2019-03-14] MEDS: Acetaminophen TAB* 325 MG PO SCH ×2 (06:12→13:49)
[2019-03-14] MEDS: Magnesium Hydroxide LIQ* 30 ML UDC PO SCH (07:34)
[2019-03-14] MEDS: ceFAZolin 1 GM ADVAN(*) 1 GM in NS 0.9% 50 ML* 50 ML IVPB SCH (07:34)
[2019-03-14] MEDS: Docusate CAP* 100 MG PO SCH (07:34)
[2019-03-14] MEDS ORDERED: Enalapril TAB* 5 MG PO SCH ×2 (09:00)
[2019-03-14] MEDS ORDERED: Hydrochlorothiazide TAB* 25 MG PO SCH (09:00)
[2019-03-14] MEDS ORDERED: Vitamin THERAPEUTIC TAB PO SCH (09:00)
[2019-03-14] MEDS ORDERED: Apixaban* 2.5 MG TAB PO SCH (09:00)
--- NOTE | 2019-03-14 09:45 | PN ---
Subjective Date of Service: 03/14/19 Interval History: Cyndie is a 64 yo female, seen today in her room for comedical management in the post operative period. She is s/p right total knee arthoplasty and OOB to chair. Reports good pain control, denies fever/chills, weakness, dizziness, CP, SOB, n/v. Is hopeful to go home today. No concerns at this time. Family History: Unchanged from Admission Social History: Unchanged from Admission Past Medical History: Unchanged from Admission Objective Active Medications: Acetaminophen (Tylenol Tab*) 975 mg PO Q8HR [facility] Last Admin: 03/14/19 06:12 Dose: Not Given Apixaban (Eliquis*) 2.5 mg PO BID [facility] Last Admin: 03/14/19 07:34 Dose: 2.5 mg Bisacodyl (Dulcolax Supp*) 10 mg [facility] DAILY PRN PRN Reason: CONSTIPATION Cyclobenzaprine HCl (Flexeril Tab*) 10 mg PO Q6H PRN PRN Reason: SPASMS Diphenhydramine HCl (Benadryl Iv*) 25 mg IV Q6H PRN PRN Reason: PRURITIS Diphenhydramine HCl (Benadryl Po*) 25 mg PO Q6H PRN PRN Reason: PRURITIS Docusate Sodium (Colace Cap*) 100 mg PO BID [facility] Last Admin: 03/14/19 07:34 Dose: 100 mg Enalapril Maleate (Vasotec Tab*) 5 mg PO QAM [facility] Last Admin: 03/14/19 07:35 Dose: 5 mg Lactated Ringer's (Lactated Ringers 1000 Ml Bag*) 1,000 mls @ 100 mls/hr IV PER RATE [facility] Last Admin: 03/13/19 23:17 Dose: 100 mls/hr Lactulose (Lactulose*) 30 ml PO BID PRN PRN Reason: CONSTIPATION Magnesium Hydroxide (Milk Of Magnesia Liq*) 30 ml PO BID [facility] Last Admin: 03/14/19 07:34 Dose: 30 ml Magnesium Hydroxide (Milk Of Magnesia Liq*) 30 ml PO Q6H PRN PRN Reason: CONSTIPATION Morphine Sulfate (Morphine Inj (Syringe))*) 2 mg IV Q4H PRN PRN Reason: Pain - Unrelieved Multivitamins (Theragran Tab*) 1 tab PO DAILY [facility] Last Admin: 03/14/19 07:34 Dose: 1 tab Ondansetron HCl (Zofran Inj*) 4 mg IV Q6H PRN PRN Reason: NAUSEA Ondansetron HCl (Zofran Odt Tab*) 4 mg PO Q6H PRN PRN Reason: NAUSEA Ondansetron HCl (Zofran Tab*) 4 mg PO Q6H PRN PRN Reason: NAUSEA Oxycodone HCl (Roxycodone Tab*) 10 mg PO Q4H PRN PRN Reason: Pain - Breakthrough Oxycodone/Acetaminophen (Percocet 5/325 Tab*) 2 tab PO Q4H PRN PRN Reason: PAIN - SEVERE Last Admin: 03/14/19 06:53 Dose: 2 tab Polyethylene Glycol/Electrolytes (Miralax*) 17 gm PO DAILY PRN PRN Reason: Constipation Tramadol HCl (Ultram*) 50 mg PO Q6H PRN PRN Reason: PAIN - MODERATE Vital Signs - 8 hr 03/14/19 03/14/19 03/14/19 01:49 03:26 04:26 Temperature 98.1 F Pulse Rate 80 Respiratory 16 16 16 Rate Blood Pressure 109/64 (mmHg) O2 Sat by Pulse 96 Oximetry 03/14/19 03/14/19 06:53 07:23 Temperature 97.8 F Pulse Rate 73 Respiratory 16 16 Rate Blood Pressure 129/71 (mmHg) O2 Sat by Pulse 96 Oximetry Oxygen Devices in Use Now: None Appearance: 64 yo female, OOB to chair, NAD Eyes: No Scleral Icterus, PERRLA Ears/Nose/Mouth/Throat: Clear Oropharnyx, Mucous Membranes Moist Neck: NL Appearance and Movements; NL JVP Respiratory: Symmetrical Chest Expansion and Respiratory Effort, Clear to Auscultation Cardiovascular: NL Sounds; No Murmurs; No JVD, RRR Abdominal: NL Sounds; No Tenderness; No Distention Extremities: No Edema, No Clubbing, Cyanosis, - - right knee edelmira wrap c/d/i, distal pulses 2+ and symmetrical to BLE Skin: No Rash or Ulcers Neurological: Alert and Oriented x 3, NL Muscle Strength and Tone Lines/Tubes/Other Access: Clean, Dry and Intact Peripheral IV Nutrition: Taking PO's Result Diagrams: 03/14/19 05:17 03/14/19 05:17 Assess/Plan/Problems-Billing Assessment: Ms. Lynch is a 64 yo female with a PMH significant for HTN, HLD, and basal cell carcinoma who was admitted on 03/13/19 for elective right total knee arthroplasty. - Patient Problems (1) Status post total right knee replacement Code(s): Z96.651 - PRESENCE OF RIGHT ARTIFICIAL KNEE JOINT Comment: POD #1, management per ortho Pain control is appropriate Continue bowel regimen PT/OT (2) HTN (hypertension) Code(s): I10 - ESSENTIAL (PRIMARY) HYPERTENSION Comment: Blood pressures reviewed, BP control is appropriate Continue home enalapril May resume HCTZ upon discharge to home if BP remain stable (pt encouraged to keep up with fluids) (3) HLD (hyperlipidemia) Code(s): E78.5 - HYPERLIPIDEMIA, UNSPECIFIED Comment: Diet controlled Continue fish oil supplement (4) DVT prophylaxis Code(s): Z29.9 - ENCOUNTER FOR PROPHYLACTIC MEASURES, UNSPECIFIED Comment: Per ortho, pt is on apixaban (5) Full code status Code(s): Z78.9 - OTHER SPECIFIED HEALTH STATUS Status and Disposition: Inpatient admission. Disposition per ortho.
[2019-03-14 11:20] VITALS: BP 122/61
--- NOTE | 2019-03-14 11:58 | PN ---
Progress Note - Progress Note Date of Service: 03/14/19 SOAP: Subjective: [The pt was seen in the bed this am. states that she is doing quite well. She denies any chest pain, sob, nausea or vomiting. ] Objective: [General: alert and oriented x3. NAD MSK, RLE: Inspection reveals a dressing that is c/d/i. +df/pf. Calf is soft and non tender. 2+ DP pulse. ] Vital Signs Temp 97.9 F 03/14/19 11:14 Pulse 88 03/14/19 11:14 Resp 17 03/14/19 11:14 BP 122/61 03/14/19 11:14 Pulse Ox 97 03/14/19 11:14 Intake & Output 03/13/19 03/14/19 03/14/19 18:59 06:59 18:59 Intake Total 200 1110 2065 Output Total 1200 1300 300 Balance -1000 -190 1765 Weight 192 lb 3.2 oz Intake: IV Fluids 1010 1950 ABX - CEFAZOLIN 55 LR 955 1950 IVPB 115 ABX - CEFAZOLIN 115 Oral 200 100 Output: Urine 300 Batista 1200 1300 Other: Estimated Stool Amount Large Assessment: [S/P RTKA POD 1] Plan: [ Continue with pain medication Continue with PT/OT Eliquis x 30 days Possible DC today ]
--- NOTE | 2019-03-14 14:52 | DS ---
Orthopedic Discharge Summary - Discharge Summary Date of Admission:03/13/19 Date of Discharge: 03/14/2019 Date of Surgery: 03/13/2019 Attending Orthopedic Provider: Dr. Anders Pre-operative Diagnosis: Right knee osteoarthritis Operative Procedure: Right total knee replacement Disposition of Patient: home Condition of Patient: good History: ROSENDA BASILIO is a 64 year old F with years of increasingly severe right knee pain. Patient has failed conservative management and has elected to undergo a right total knee replacement Hospital Course: ROSENDA was admitted to [facility] on 03/13/19. Patient underwent a right total knee replacement without complication followed by a brief recovery in PACU and transfer to the Short Stay Surgical Unit in stable condition. Our hospitalist service, physical therapy and occupational therapy also participated in this patients care. Post-op day 1: patient was alert and in no acute distress. Dressing was clean, dry and intact. Operative extremity dorsiflexion and plantarflexion intact, sensation intact to light touch distally, DP2+. dressing was changed, incision was clean, dry and intact. Patient was deemed to be medically and orthopedically stable for discharge. Physical therapy goals were met. Home Medications Medication Instructions Recorded Confirmed Type Aspirin EC TAB* [Ecotrin EC Low 81 mg PO QAM 08/30/17 03/13/19 History Dose 81 MG*] [place]-3/Dha/Epa/Fish Oil [Fish Oil 1,200 mg PO QAM 08/30/17 03/13/19 History 1,000 mg Softgel] Cholecalciferol TAB* [Vitamin D 2,000 unit PO QAM 09/05/17 03/13/19 History TAB*] Enalapril/Hydrochlorothiazide 1 tab PO QAM 09/05/17 03/13/19 History [Enalapril-Hctz 5-12.5 mg Tab] Multivit-Min/Iron/Folic/Lutein 1 tab PO QAM 09/05/17 03/13/19 History [Centrum Silver Women Tablet] Discharge Instructions following Orthopedic Surgery: Activity: * Weight Bearing as tolerated * Continue physical therapy and occupational therapy exercises as shown Wound care: * OK to shower on post-op day 3, no bathing, swimming, or submerging wound. * Use gentle soap, pat dry. Cover with gauze, VERENICE wrap or tape. * Visiting home nurse to do wound checks. Call Orthopedic office for: * Increased drainage * Redness * Increased pain * Fever Go to ER with shortness of breath or chest pain. Diet: * Regular diet * Increase fluids and fiber to prevent constipation. * Continue to use stool softeners, call office if no bowel motion within 48 hours. Medications See Home Medication List in your packet for medications that you should take after discharge. DVT Prophylaxis: Eliquis Dosin.5 mg, 1 tab every 12 hours x 30 days Pain Control: Percocet Dosin/325 mg 1-2 tabs by mouth every 4-6 hours as needed for pain. Maximum of 10 tabs per day. Please note that Percocet contains Tylenol (acetaminophen). Maximum daily dose of Tylenol is 4000 mg from all sources. Antibiotics are required prior to any dental work. FOLLOW UP: Follow up with [[facility]] Within 10-14 days, call for appointment Please call our office with any questions or concerns ([phone])
[2019-03-15] MEDS ORDERED: Bisacodyl SUPP* 10 MG SUPP PR PRN (12:14)
== END 2019-03-14 16:07 | disposition home or self-care (01) | DRG 302 ==
LOC: AA 07:13 → SSU 12:14
PROVIDERS: ADMIT Orthopaedic Surgery Adult Reconstructive Orthopaedic Surgery; ATTEND Orthopaedic Surgery Adult Reconstructive Orthopaedic Surgery
PROC: 0SRC069 Replacement of Right Knee Joint with Oxidized Zirconium on Polyethylene Synthetic Substitute, Cemented, Open Approach (ICD-10-PCS; principal; 2019-03-13 09:45)
DX: M17.11 Unilateral primary osteoarthritis, right knee (principal); I10 Essential (primary) hypertension; E78.00 Pure hypercholesterolemia, unspecified; M25.761 Osteophyte, right knee; M25.461 Effusion, right knee; E78.5 Hyperlipidemia, unspecified; Z87.891 Personal history of nicotine dependence; Z80.8 Family history of malignant neoplasm of other organs or systems; Z85.828 Personal history of other malignant neoplasm of skin; Z72.89 Other problems related to lifestyle; Z79.82 Long term (current) use of aspirin
CPT/HCPCS: 36415; 80048; 85014; 85018; 85049; 85730; 88305; 88311; A9270-GY; C1776; J0690; J1100; J1170; J1885; J2250; J2405; J2704; J2765; J2795; J3010

== ENCOUNTER → 2019-05-16 05:36 | Day surgery (SDC) | payer OTHER ==
--- NOTE | 2019-05-15 10:55 | HP ---
HISTORY AND PHYSICAL: DATE OF ADMISSION: 05/16/19 PROVIDER: Dr. Anders* (dictated by ANGELIA Martinez). HISTORY OF PRESENT ILLNESS: Ms. yLnch is now 2 months status post right total knee arthroplasty performed on 03/13/19. She has trouble with stiffness in the right knee since surgery. Today, she reports she has not made much improvement. She denies any fevers, chills, or night sweats. She has been working with Physical Therapy. She would like to proceed with a right total knee manipulation under anesthesia. PAST MEDICAL HISTORY: 1. Hypertension. 2. Hypercholesterolemia. 3. History of basal cell carcinoma. PAST SURGICAL HISTORY: 1. Basal cell removal. 2. Tonsils and adenoid removal. 3. Tubal ligation. 4. D and C. 5. Supracervical hysterectomy. 6. Right ovary and fallopian tube removal. 7. Breast reduction. 8. Right knee arthroscopy. 9. Right total knee arthroplasty. MEDICATIONS: 1. Ibuprofen 800 mg. 2. Cyclobenzaprine 10 mg. 3. Percocet 5/325. 4. Vitamin D3 1000 units. 5. Enalapril/hydrochlorothiazide 5/12.5. 6. Aspirin 81 mg. 7. Centrum Silver 1 by mouth. 8. Fish Oil 1200 mg ALLERGIES: No known drug allergies FAMILY HISTORY: Noncontributory. SOCIAL HISTORY: The patient lives with spouse. 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 She has about 7 to 10 drinks per week. She does not smoke. She does not participate in illicit drug use. REVIEW OF SYSTEMS: General: The patient denies fevers, chills, or night sweats. No known anesthesia problems. HEENT: The patient denies headaches or lightheadedness. Cardiothoracic: The patient admits to occasional palpitations. Denies any chest pain or edema. Pulmonary: The patient denies any shortness of breath with exertion, chronic cough. GI: The patient denies any nausea or vomiting, diarrhea, or constipation. : The patient denies any nocturia, urinary frequency, or urgency. MSK: The patient any chronic or intermittent back pain. Neuro: The patient denies any paresthesias, numbness, seizures, or stroke. Integument: The patient denies any abrasions, lesions, rashes, lumps, or open sores. PHYSICAL EXAMINATION GENERAL: The patient is alert and oriented x3 with appropriate mood and affect, appropriately dressed and hygiene. HEENT: Normocephalic, atraumatic. Hearing and vision are grossly intact. PULMONARY: Lungs are clear to auscultation bilaterally with no wheezes, rales, or rhonchi. CARDIAC: Regular rate and rhythm. Normal S1 and S2. No appreciable S3 or S4. No murmurs, rubs, or gallops. MSK: Right lower extremity: The patient's skin is intact with a well healing incision. She has trace effusion. Range of motion today is 20 degrees of extension to 70 degrees of flexion with knee pain at terminal flexion and extension. She is neurovascularly intact distally with 2+ dorsalis pedis pulse. IMPRESSION: Arthrofibrosis versus stiffness of right total knee arthroplasty from 03/13/19. PLAN: 1. To the OR for manipulation under anesthesia of the right total knee arthroplasty. 2. We will obtain labs, CBC with diff, CRP, ESR. 3. The risks and complications of surgery were reviewed with the patient by Dr. Anders. 4. We will have her follow up in 10 to 14 days after surgery for evaluation. ANGELIA MARTINEZ [id number]/[facility] #: [id number] NINA
[~2019-05-16 05:36] MED LIST changes: +Acetaminophen TAB* 325 MG ONE; +Acetaminophen TAB* 325 MG PO ONE; +Dexamethasone IV* 4 MG/ML 1 ML (4 MG) ONE; +DiMENhydriNATE IV* 50 MG/ML VIAL IV PUSH PRN; +Famotidine IV* 10 MG/ML 2 ML (20 mg) IV ONE; +Famotidine IV* 10 MG/ML 2 ML (20 mg) ONE; +Gabapentin CAP(*) 300 MG ONE; +Gabapentin CAP(*) 300 MG PO ONE; +KETAMINE HCL* 50 MG/ML 10 ML VIAL ONE; +Ketorolac INJ* 30 MG/ML 1 ML VIAL ONE; +Lidocaine 2% PF * 5 ML VIAL ONE; +Midazolam* 1 MG/ML 2 ML VIAL (2 MG) ONE; +Naloxone* 0.4 MG/ML 1 ML VIAL IV PRN; +Ondansetron INJ* 2 MG/ML VIAL IV PRN; +Ondansetron INJ* 2 MG/ML VIAL ONE; +Propofol* 10 MG/ML 20 ML BTL ONE; +Succinylcholine* 20 MG/ML 10 ML VIAL ONE; -Tranexamic Acid 1,000 MG in NS 0.9% 50 ML* (outpatient use) IV SCH; +diPHENhydraMINE IV* 50 MG/ML 1 ml VIAL (BENADRYL) IV PRN; +fentaNYL* 50 MCG/ML 2 ML VIAL (100 MCG VIAL) IV PRN; +fentaNYL* 50 MCG/ML 2 ML VIAL (100 MCG VIAL) ONE; +oxyCODONE/Acetamin 5/325 MG* TAB PO PRN
[2019-05-16 09:12] VITALS: BP 160/108
--- NOTE | 2019-05-16 23:50 | OP ---
OPERATIVE REPORT: DATE OF OPERATION: 05/16/19 DATE OF : 57 SURGEON: Aylin Anders MD ANESTHESIOLOGIST: Dr. Pope. ANESTHESIA: General. PRE-OP DIAGNOSIS: Right total knee arthroplasty with stiffness. POST-OP DIAGNOSIS: Right total knee arthroplasty with stiffness. OPERATIVE PROCEDURE: Manipulation under anesthesia of the right total knee arthroplasty. COMPLICATIONS: None. ESTIMATED BLOOD LOSS: None. SPECIMEN: None. BRIEF HISTORY/INDICATIONS: Ms. Lynch is a 64-year-old female who had a right total knee arthroplasty less than 3 months ago. Postop course has been complicated by difficulty with pain management and the patient has had difficulty obtaining range of motion of the knee. Despite conservative management and aggressive physical therapy, the patient had limited motion in the knee and we decided to perform manipulation under anesthesia. Risks of the procedure were explained to the patient. She wished to proceed. She understood the risks included, but were not limited to bleeding, continued stiffness, periprosthetic fracture, anesthesia complications, stroke, heart attack, blood clot, and . She wished to proceed. INTRAOPERATIVE FINDINGS: Intraoperatively, the patient's pre-manipulation range of motion was 20 to 45 degrees of flexion. After the manipulation, range of motion was 15 to 120 degrees of flexion. DESCRIPTION OF PROCEDURE: Ms. Lynch was identified in the preanesthesia unit. Her right lower extremity was marked as the correct operative site. Informed consent was signed and placed in the chart. The patient was taken to the operating room and placed under anesthesia without complications. Appropriate preoperative time-out was performed. Pre-manipulation range of motion was photographed. Next, gentle manipulation of the knee was performed. Flexion and extension of the knee was performed several times with increasing amounts of pressure. There was audible and palpable breakup of scar tissue in the knee. 15 to 125 degrees of flexion was obtained. The patient's knee was noted to have extensive scar tissue. C-arm views in AP and lateral plane showed no periprosthetic fracture. Final photograph of intraoperative flexion was documented. The patient's anesthesia was reversed without difficulty. She was taken to the PACU in stable condition. Intended weightbearing will be weightbearing as tolerated. She does have physical therapy scheduled for this afternoon. She will follow up in clinic 1 week's time for a recheck. [id number]/[facility] #: [id number] [facility]
== END | disposition home or self-care (01) ==
LOC: OR 05:36
PROVIDERS: ATTEND Orthopaedic Surgery Adult Reconstructive Orthopaedic Surgery
DX: M24.661 Ankylosis, right knee (principal); Z96.651 Presence of right artificial knee joint; I10 Essential (primary) hypertension; E78.00 Pure hypercholesterolemia, unspecified; Z85.828 Personal history of other malignant neoplasm of skin; Z87.891 Personal history of nicotine dependence; K21.9 Gastro-esophageal reflux disease without esophagitis; Z68.33 Body mass index [BMI] 33.0-33.9, adult
CPT/HCPCS: 76000; A9270-GY; J0330; J1100; J1885; J2250; J2405; J2704; J3010

== ENCOUNTER 2023-04-28 03:43 | Observation (INO) ==
[2023-04-28] MEDS ORDERED: Lactated Ringers 1000 ml BAG 1,000 ML IV ONE (04:33)
[2023-04-28 04:35] LABS: ABS Basophils 0.1 10^3/uL (0.0-0.1); ABS Eosinophils 0.3 10^3/uL (0.0-0.5); ABS Lymphocytes 1.5 10^3/uL (1.0-4.8); ABS Monocytes 0.7 10^3/uL (0.0-0.9); ABS Neutrophils 7.7 10^3/uL (1.5-7.6); ABS Nucleated RBC 0.01 10^3/ul; Eosinophil % 2.5 %; Hematocrit 39.5 % (35-45); Hemoglobin 13.9 g/dL (11.5-14.3); Lymphocyte % 14.4 %; Mean Corpuscular Hemoglobin 33.2 pg (27-33); Mean Corpuscular Hgb Conc 35.3 g/dL (31-36); Mean Corpuscular Volume 94.1 fL (80-97); Mean Platelet Volume 7.2 fL (7.5-11.2); Nucleated Red Blood Cells % 0.1 %/100WBC (0.0-0.8); Platelet Count 308 10^3/uL (150-450); Red Cell Distribution Width 12.9 % (12-17); White Blood Count 10.2 10^3/uL (3.8-11.8)
[2023-04-28 04:55] LABS: Albumin 4.6 g/dL (3.2-5.2); Albumin/Globulin Ratio 1.5 (1-3); C Reactive Protein 42.48 mg/L (<8.01); Calcium 9.7 mg/dL (8.6-10.3); Creatinine, Serum 0.71 mg/dL (0.51-0.95); Globulin 3.1 g/dL (2-4); Potassium 3.5 mmol/L (3.5-5.0); Total Bilirubin 0.9 mg/dL (0.2-1.0); Total Protein 7.7 g/dL (6.4-8.9); eGFR CKD-EPI 93.1 (>60)
[2023-04-28] MEDS ORDERED: Iohexol 350 (CONTRAST) 500 ML MDV IV ONE (05:10)
[2023-04-28] MEDS ORDERED: Multivitamins/Minerals TAB PO SCH (09:00)
[2023-04-28 15:36] VITALS: BP 125/63
[2023-04-28 16:33] LABS: Hematocrit 38.4 % (35-45); Hemoglobin 13.2 g/dL (11.5-14.3)
== END 2023-04-28 19:03 | disposition home or self-care (01) ==
LOC: EDHOLD 03:43 → ED 03:43 → MEDTELE 09:27
PROVIDERS: ADMIT Hospitalist; ATTEND Hospitalist